=== PATIENT | female | born 1995 | race Caucasian/White ===

== ENCOUNTER 2020-11-09 19:25 | Emergency (ER) | payer OTHER ==
[2020-11-09 19:33] VITALS: BP 126/85; PULSE 110; TEMP 98; BMI 32.1
[2020-11-09] MEDS ORDERED: ACETAMINOPHEN 500 MG TABLET (FP) PO ONE (19:56)
[2020-11-09] MEDS ORDERED: ACETAMINOPHEN 500 MG TABLET (FP) ONE (19:56)
== END 2020-11-09 21:00 | disposition home or self-care (01) ==
LOC: FER 19:25
DX: S93.601A Unspecified sprain of right foot, initial encounter (principal); S93.401A Sprain of unspecified ligament of right ankle, initial encounter
CPT/HCPCS: 73610-TC-RT-FY; 73630-TC-RT-FY; 99284-25